=== PATIENT | male | born 1970 | race Caucasian/White ===

== ENCOUNTER → 2017-10-12 | Outpatient (CLI) | payer OTHER ==
[2017-10-12 10:47] LABS: Basophils # (A) 0.1 k/uL (0-0.2); Basophils % (A) 1 %; CH 32.9; CHCM 33.8; Eosinophils # (A) 0.1 k/uL (0-0.7); Eosinophils % (A) 2 %; HCT 49.8 % (39.0-53.0); HDW 2.44; HGB 16.3 gm/dL (13.0-17.5); Luc # (Auto) 0.14; Luc % (Auto) 2; Lymphocytes # (A) 2.1 k/uL (1.0-4.8); Lymphocytes % (A) 30 %; MCH 32.2 pg (25.0-35.0); MCHC 32.8 g/dL (31.0-37.0); Mean Platelet Volume 7.7; Monocytes # (A) 0.4 k/uL (0-1.0); Monocytes % (A) 5 %; Neutrophils # (A) 4.2 k/uL (1.3-7.7); Neutrophils % (A) 60 %; RBC 5.08 m/uL (4.30-5.90); RDW 14.3 % (11.5-15.5); WBC (Perox) 7.07
[2017-10-12 14:39] LABS: Erythrocyte Sedimentation Rate 2 mm/hr (0-15)
== END | disposition home or self-care (01) ==
LOC: LABWHC1 10:22
PROVIDERS: ATTEND Orthopaedic Surgery Foot and Ankle Surgery
DX: L97.209 Non-pressure chronic ulcer of unspecified calf with unspecified severity (principal); M86.9 Osteomyelitis, unspecified; M19.171 Post-traumatic osteoarthritis, right ankle and foot
CPT/HCPCS: 36415; 85025; 85652; 86140